=== PATIENT | female | born 1945 | race American Indian/Alaskan Native ===

== ENCOUNTER 2020-10-25 09:57 | Emergency (ER) | payer MEDICARE, OTHER ==
[2020-10-25 10:17] VITALS: BP 152/86
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
[2020-10-25 12:29] LABS: Basophils % (Auto) 1.2 % (0.0-1.8); Eosinophils # (Auto) 0.4 K/mm3 (0.0-0.4); Hemoglobin 11.3 gm/dl (10.1-14.3); Lymphocytes # (Auto) 1.8 K/mm3 (1.2-5.4); Lymphocytes % (Auto) 44.3 % (13.4-35.0); Mean Corpuscular HGB Conc 33 % (30-34); Mean Corpuscular Volume 89 fl (79-97); Monocytes # (Auto) 0.3 K/mm3 (0.0-0.8); Monocytes % (Auto) 8.6 % (0.0-7.3); Platelet Count 237 K/mm3 (140-440); Red Blood Count 3.81 M/mm3 (3.65-5.03)
[2020-10-25 13:00] LABS: BUN/Creatinine Ratio 22; Blood Urea Nitrogen 20 mg/dL (7-17); Calcium 9.6 mg/dL (8.4-10.2); Hemolysis Index 8
--- NOTE | 2020-10-26 19:39 | Electrocardiograph Report ---
[facility] Test Date: 2020-10-25 Test Time: 11:58:37 Pat Name: KATYA HERNANDEZ Department: Room: Gender: F Blood Donor Unit Assistant: PIANO STRINGER : 1945 Requested By: LOU CARRENO Order Number: [id number] Reading MD: Soy Myrick Measurements Intervals [place] Rate: 75 P: 40 NV: 156 QRS: 24 QRSD: 91 T: 46 QT: 385 QTc: 430 Interpretive Statements Sinus arrhythmia Probable left atrial enlargement Low voltage, precordial leads No previous ECG available for comparison Electronically Signed On 10-26-2020 19:38:48 EDT by Soy Myrick
== END 2020-10-25 13:38 | disposition home or self-care (01) ==
LOC: ED 09:57 → EDBD 09:57 → ED 13:38
DX: R07.89 Other chest pain (principal); Z88.0 Allergy status to penicillin; Z90.49 Acquired absence of other specified parts of digestive tract; Z90.710 Acquired absence of both cervix and uterus; V49.49XA Driver injured in collision with other motor vehicles in traffic accident, initial encounter; Y92.410 Unspecified street and highway as the place of occurrence of the external cause; Y93.89 Activity, other specified; Y99.8 Other external cause status
CPT/HCPCS: 36415; 71046; 80048; 84484; 85025; 93005